=== PATIENT | female | born 1995 | race Caucasian/White ===

== ENCOUNTER 2018-09-28 08:41 | Outpatient (CLI) | payer OTHER ==
--- NOTE | 2018-09-28 10:16 | ULT ---
PELVIC ULTRASOUND: HISTORY: anatomy. COMPARISON: None. TECHNIQUE: Transabdominal and endovaginal imaging of the gravid uterus is performed. FINDINGS: The uterus is identified, without myometrial masses. The uterus measures 4.7 x 6 x 10 cm. Within th e endometrium, there is a gestational sac, a yolk sac, and a pole. No subchorionic hemorrhage. [place]-rump length is 1.02 cm, corresponding to a gestational age of 7 weeks 1 day. heart ton es with a rate of 128 beats per minute. Both ovaries have a normal echotexture. The right ovary measures 3.1 x 2.5 x 2.9 cm. The left ovary measures 3 x 1.8 x 1.8 cm. No free fluid. OVARIAN DOPPLER: Vascular flow to both ovaries. IMPRESSION: Single intrauterine gestation with heart tones. Gestational age by crown-rump length is 7 week s 1 day. POS: [facility]
== END 2018-09-28 08:42 | disposition home or self-care (01) ==
LOC: SCSULT 08:41
PROVIDERS: ATTEND Nurse Practitioner
DX: Z34.81 Encounter for supervision of other normal pregnancy, first trimester (principal); Z3A.01 Less than 8 weeks gestation of pregnancy
CPT/HCPCS: 76856; 93976